=== PATIENT | male | born 1965 | race Caucasian/White ===

== ENCOUNTER 2025-05-09 13:57 | Observation (INO) | payer OTHER, SELFPAY ==
[2025-05-09] VITALS (9 sets, daily range): BP systolic 131–172; BP diastolic 78–95; BMI 26.3; BMI 26.4
--- NOTE | 2025-05-09 12:15 | ED.GENMED ---
History of Present Illness
<Carmen Ponce PA-C - Last Filed: 05/09/25 16:25>
General
Chief Complaint: Chest Pain
Source: patient
Exam Limitations: none
Time Seen by Provider: 05/09/25 12:01
History of Present Illness
History of Present Illness:
60yoM with a history of hypertension, hyperlipidemia, type 2 diabetes presenting via EMS for evaluation of palpitations. Patient reports feeling 'off' this morning and not feeling right. He drank 2 K-cups of coffee and he does not typically drink
caffeine. About 45 minutes ago, patient started to feel like his heart was pounding with associated lightheadedness and shakiness prompting EMS call. He denies any associated chest pain or shortness of breath. No syncope. He was given aspirin
prior to arrival. He denies any illicit drug use. He follows with [facility] and last had a stress test about a year ago which was reportedly normal.
Phy Exam
<Carmen Ponce PA-C - Last Filed: 05/09/25 16:25>
Physical Exam
Physical Exam:
Shaky, anxious
General Physical Exam
General Presentation: well appearing and no apparent distress
General Skin: warm and dry
General Habitus: normal
General Mental: anxious
ENT Exam
ENT Exam: normocephalic
Cardiovascular Exam
Cardiovascular Exam: regular rate/rhythm, no edema, no murmur and normal peripheral pulses
Pulmonary Exam
Pulmonary Exam: lungs clear, no respiratory distress, no rales, no crackles, no rhonchi and no wheezing
Neurological Exam
Neurological Exam: alert
Lanie Coma Scale
Eye Opening: Spontaneous
Verbal Response: Oriented
Motor Response: Obeys Commands
GCS Total Score: 15
Skin Exam
Skin Exam: normal color and warm/dry
Psychiatric Exam
Psychiatric Exam: anxious
Scores
<Carmen Ponce PA-C - Last Filed: 05/09/25 16:25>
Heart Score for Chest Pain Patients
STEMI patient?: No
History: Moderately Suspicious
ECG: Nonspecific Repolarization
Age: >45 - <65 years
Risk Factors: >/= 3 Risk Factors or History of CAD
Troponin: </= Normal Limit
Heart Score for Chest Pain Patients: 5
Heart Score Risk: 20.3% MACE over next 6 weeks
Course
<Carmen Ponce PA-C - Last Filed: 05/09/25 16:25>
Orders/Labs/Results
Orders:
Orders
05/09/25 12:04
Electrocardiogram (*1) Urgent
Reason for Study: Palpitations
EKG- Treatment ONCE
05/09/25 12:10
Complete Blood Count/With Diff Urgent
Comprehensive Metabolic Panel Urgent
Magnesium Urgent
Troponin I Urgent
05/09/25 12:12
Cardiac Monitoring- Treatment ONCE
CR Chest - 2 Views Urgent
Comment:
Reason For Exam: Palpitations
05/09/25 12:16
D-Dimer Urgent
TSH Reflex To Free T4 Urgent
05/09/25 12:30
0.9% Sodium Chloride 1000 ml [Nss] 1,000 ml IV BOLUS
05/09/25 12:41
Potassium Chloride [KCl] 40 meq PO NOW STA
05/09/25 13:23
Admit/Transfer Patient As Directed
Co-Sign Provider:
Level of Care: Observation services
Assign to:: Telemetry
Physician / Group: divine
Diagnosis: palpitations
Reason for Telemetry: Arrhythmia
Date to Stop Telemetry: 05/12/25
Time to Stop Telemetry: 11:00
PRN Pain Medication Management As Directed
May give lesser potent ordered pain med per pt: Yes
preference::
Protocol:: Medication orders for pain may be administered in a
manner that supports deferring to patient preference
when the pt is:
- Requesting an ordered lesser potent pain medication.
Least to most potent pain medications are defined
as: acetaminophen < NSAID < tramadol < opioids
(morphine, oxycodone, hydromorphone).
- Requesting a lesser dose of the same medication IF
ORDERED.
- Requesting a less intrusive route of administration
if both routes are prescribed by the provider (PO <
IV).
05/09/25 13:24
Code Status As Directed
Resuscitation Status: Full Code
05/09/25 13:28
Metoprolol [Lopressor] 5 mg IV NOW STA
05/09/25 Dinner
Regular
At Your Request: Full Participation
Does patient need a safe tray?: No
05/09/25 15:32
Troponin I Q6H
Dextrose 50%-Water [Dextrose 50% Syringe] 12.5 grams IV [id number] PRN
Glucagon [GlucaGen] 1 mg IM PRN PRN
05/09/25 15:32
CARDIOLOGY CONSULT Routine
Consulting Provider: Tari Johnson
Was physician already notified: Yes
Activity As Directed
Activity Level: As Tolerated
Bedside Glucose Monitoring As Directed
Frequency: AC&HS
Additional Instructions:: Change to q6h if pt on TPN, tube feeding or not eating
Vital Signs As Directed
Frequency: Per unit guidelines
DX Deep Vein Thrombosis Video Routine
05/09/25 16:30
Insulin Aspart Corrective Low [Novolog Flexpen-Low Resistance] See Protocol SC AC
05/09/25 20:00
Heparin 5,000 units SC Q12
05/09/25 21:32
Troponin I Q6H
05/10/25 03:32
Troponin I Q6H
05/10/25 06:00
Complete Blood Count/With Diff IN AM
Comprehensive Metabolic Panel IN AM
Glycohemoglobin (HgbA1c) IN AM
05/10/25 08:00
Atorvastatin [Lipitor] 40 mg PO DAILY
Chlorthalidone [Hygroton] 25 mg PO DAILY
Famotidine [Pepcid] 20 mg PO DAILY
Losartan [Cozaar] 100 mg PO DAILY
Tamsulosin [Flomax] 0.4 mg PO DAILY
empagliflozin [Jardiance] 25 mg PO DAILY
05/12/25 11:00
DC Protocol for Telemetry ONCE
Abnormal Lab Results
05/09/25
12:10
Absolute Monos (auto) 0.9 H 10^3/uL
(0.1-0.6)
Monocytes % 11.8 H %
(1.7-9.3)
Potassium 3.0 L mmol/L
(3.5-5.1)
BUN 22 H mg/dl
(9-20)
Glucose 127 H mg/dl
(70-99)
05/09/25 12:10
05/09/25 12:10
Vital Signs
Initial and Last Documented VS:
Initial Vital Signs
Pulse Resp Pulse Ox
109 13 98
05/09/25 12:02 05/09/25 12:02 05/09/25 12:02
Last Documented Vital Signs
Temp Pulse Resp BP Pulse Ox
98.5 F 104 16 161/93 98
05/09/25 15:55 05/09/25 15:55 05/09/25 15:55 05/09/25 15:55 05/09/25 15:55
<Boy Grady MD - Last Filed: 05/09/25 12:36>
Orders/Labs/Results
Orders:
Orders
05/09/25 12:04
Electrocardiogram (*1) Urgent
Reason for Study: Palpitations
EKG- Treatment ONCE
05/09/25 12:10
Complete Blood Count/With Diff Urgent
Comprehensive Metabolic Panel Urgent
Magnesium Urgent
Troponin I Urgent
05/09/25 12:12
Cardiac Monitoring- Treatment ONCE
CR Chest - 2 Views Urgent
Comment:
Reason For Exam: Palpitations
05/09/25 12:16
D-Dimer Urgent
TSH Reflex To Free T4 Urgent
05/09/25 12:30
0.9% Sodium Chloride 1000 ml [Nss] 1,000 ml IV BOLUS
05/09/25 12:41
Potassium Chloride [KCl] 40 meq PO NOW STA
05/09/25 13:23
Admit/Transfer Patient As Directed
Co-Sign Provider:
Level of Care: Observation services
Assign to:: Telemetry
Physician / Group: divine
Diagnosis: palpitations
Reason for Telemetry: Arrhythmia
Date to Stop Telemetry: 05/12/25
Time to Stop Telemetry: 11:00
PRN Pain Medication Management As Directed
May give lesser potent ordered pain med per pt: Yes
preference::
Protocol:: Medication orders for pain may be administered in a
manner that supports deferring to patient preference
when the pt is:
- Requesting an ordered lesser potent pain medication.
Least to most potent pain medications are defined
as: acetaminophen < NSAID < tramadol < opioids
(morphine, oxycodone, hydromorphone).
- Requesting a lesser dose of the same medication IF
ORDERED.
- Requesting a less intrusive route of administration
if both routes are prescribed by the provider (PO <
IV).
05/09/25 13:24
Code Status As Directed
Resuscitation Status: Full Code
05/09/25 13:28
Metoprolol [Lopressor] 5 mg IV NOW STA
05/09/25 Dinner
Regular
At Your Request: Full Participation
Does patient need a safe tray?: No
05/09/25 15:32
Troponin I Q6H
Dextrose 50%-Water [Dextrose 50% Syringe] 12.5 grams IV [id number] PRN
Glucagon [GlucaGen] 1 mg IM PRN PRN
05/09/25 15:32
CARDIOLOGY CONSULT Routine
Consulting Provider: Tari Johnson
Was physician already notified: Yes
Activity As Directed
Activity Level: As Tolerated
Bedside Glucose Monitoring As Directed
Frequency: AC&HS
Additional Instructions:: Change to q6h if pt on TPN, tube feeding or not eating
Vital Signs As Directed
Frequency: Per unit guidelines
DX Deep Vein Thrombosis Video Routine
05/09/25 16:30
Insulin Aspart Corrective Low [Novolog Flexpen-Low Resistance] See Protocol SC AC
05/09/25 20:00
Heparin 5,000 units SC Q12
05/09/25 21:32
Troponin I Q6H
05/10/25 03:32
Troponin I Q6H
05/10/25 06:00
Complete Blood Count/With Diff IN AM
Comprehensive Metabolic Panel IN AM
Glycohemoglobin (HgbA1c) IN AM
05/10/25 08:00
Atorvastatin [Lipitor] 40 mg PO DAILY
Chlorthalidone [Hygroton] 25 mg PO DAILY
Famotidine [Pepcid] 20 mg PO DAILY
Losartan [Cozaar] 100 mg PO DAILY
Tamsulosin [Flomax] 0.4 mg PO DAILY
empagliflozin [Jardiance] 25 mg PO DAILY
05/12/25 11:00
DC Protocol for Telemetry ONCE
Abnormal Lab Results
05/09/25
12:10
Absolute Monos (auto) 0.9 H 10^3/uL
(0.1-0.6)
Monocytes % 11.8 H %
(1.7-9.3)
Potassium 3.0 L mmol/L
(3.5-5.1)
BUN 22 H mg/dl
(9-20)
Glucose 127 H mg/dl
(70-99)
05/09/25 12:10
05/09/25 12:10
Vital Signs
Initial and Last Documented VS:
Initial Vital Signs
Pulse Resp Pulse Ox
109 13 98
05/09/25 12:02 05/09/25 12:02 05/09/25 12:02
Last Documented Vital Signs
Temp Pulse Resp BP Pulse Ox
98.5 F 104 16 161/93 98
05/09/25 15:55 05/09/25 15:55 05/09/25 15:55 05/09/25 15:55 05/09/25 15:55
<Carmen Ponce PA-C - Last Filed: 05/09/25 16:25>
MDM/Problems Addressed
Differential Diagnosis Includes:
60yoM here with palpitations and dizziness. Had caffeine this morning which is unusual for him. HR 109 on arrival and BP 172/95. He is anxious during initial exam. Differential diagnosis includes but is not limited to: Arrhythmia, thyroid
dysfunction, electrolyte abnormality, side effect of caffeine, ACS
Initial ED plan: EKG obtained at bedside which shows sinus tachycardia with ST/T wave changes in inferolateral leads. Will check cardiac labs, TSH, magnesium, D-dimer, and chest x-ray. IV fluid bolus.
<Carmen Ponce PA-C - Last Filed: 05/09/25 16:25>
*Pulse Oximetry
SaO2: 99
Oxygen Mode of Delivery: Room air
Patient hypoxic: no
*EKG
Interpreted by ED Provider?: Yes
EKG Intrepretation Date: 05/09/25
Heart Rate: 108
Rate: tachycardiac
Rhythm: sinus and PAC's
[place]: normal axis
Interval: normal interval
QRS Pattern: normal QRS
Ischemia: ST depression (ST/T wave changes in inferolateral leads)
*Critical Care Note
Total Time (30-74mins, 75-104mins- exclusive of procedures): Not Applicable
<Carmen Ponce PA-C - Last Filed: 05/09/25 16:25>
Update Note
Update Note:
Labs reveal a potassium of 3.0 which was replaced. Troponin and D-dimer normal. I was able to access patient's last EKG in 2022 on [facility] which appeared normal. Given new EKG changes and multiple risk factors, will admit for further
evaluation and monitoring.
ED Attending Note
<Carmen Ponce PA-C - Last Filed: 05/09/25 16:25>
-
Portions of this chart may have been created with voice recognition software.� Occasional wrong word or��sound alike� substitutions may have occurred due to the inherent limitations of voice recognition software.
<Boy Grady MD - Last Filed: 05/09/25 12:36>
ED Attending Note
Patient seen and examined by attending physician: Yes
I performed the substantive portion of visit, reviewed & personally made and approve the management plan that is documented in note by myself or LIZZIE.: Yes
ED Attending Note:
60-year-old male relatively sudden onset of palpitations and pounding in his heart this morning. He felt it might be related to his drinking coffee. No similar previous episodes although his states he gets up almost every day feeling off and
not himself. Blood sugar was also mildly elevated. Denies chest pain or shortness of breath. Did have a near syncopal episode. Currently feeling improved. And again currently denying chest pain or shortness of breath just feels slightly off
On exam patient is nontoxic in no distress. He is warm and dry. He is perfusing well. He is mildly tachycardic. Heart tacky but regular no murmur. Lungs clear and equal. Abdomen benign. Extremities warm and dry. Perfusing well. No thyroid
palpable. Nonfocal.
EKG mildly tachycardic with some ST depressions.
Impression is palpitations heart racing with some atypical coronary artery disease symptoms however patient is diabetic and has multiple risk factors. Ischemic changes are somewhat concerning and we are trying to locate previous EKG. Cardiac
workup. Troponin pending. Would also consider PE. He is a remote history of PE. Would also consider thyroid as a secondary cause or electrolyte issue contributory to his issues. Workup in progress
Discharge Plan
Departure
Patient Disposition: Admit
Date of Disposition: 05/09/25
Time of Disposition: 12:54
Presentation/result/management discussed w/ accepting MD/DO: Hospitalist
Discharge Problem:
Palpitations, Hypokalemia, Nonspecific abnormal electrocardiogram (ECG)
Interventions
Interventions:
*Risk Screen - Suicide Last Done: 05/09/25 12:12
*General Assessment Last Done: 05/09/25 12:16
*Neglect/Abuse Screening Last Done: 05/09/25 12:12
*ED- Fall Risk Assessment Last Done: 05/09/25 12:09
*ED COVID-19 Vaccine History Last Done: 05/09/25 12:15
*ED Influenza Vaccine History Last Done: 05/09/25 12:15
*Nursing Disposition Last Done: 05/09/25 15:47
ED- Cardiac Assessment Last Done: 05/09/25 12:15
Discharge Date and Time
Discharge Date/Time: 05/09/25 15:47
[2025-05-09 12:19] LABS: Hematocrit 43.9 % (39.0-52.0); Hemoglobin 14.7 g/dL (13.0-18.0); Mean Corp Hgb Conc. 33.5 g/dL (33.0-37.0); Mean Corpuscular Volume 83.0 fL (80.0-94.0); Nucleated Red Blood Cells % 0 % (-); Platelet Count 256 10^3/uL (130-400); Red Cell Dist. Width 13.1 % (11.5-14.5)
[2025-05-09] MEDS: NSS 1000 IV (12:33)
[2025-05-09 12:38] LABS: ALT (SGPT) 36 U/L (0-50); AST (SGOT) 33 U/L (17-59); Albumin 4.7 g/dl (3.5-5.0); Alkaline Phosphatase 98 U/L (38-126); Blood Urea Nitrogen 22 mg/dl (9-20); Calcium 9.7 mg/dl (8.4-10.2); Carbon Dioxide 27 mmol/L (22-30); Chloride 99 mmol/L (98-107); Estimated Creatinine Clearance 101 ml/min; Glucose 127 mg/dl (70-99); Magnesium 1.6 mg/dl (1.6-2.3); Potassium 3.0 mmol/L (3.5-5.1); Sodium 136 mmol/L (135-145); Total Protein 7.5 g/dl (6.3-8.2); eGFR > 60.00
[2025-05-09 12:40] LABS: D-Dimer 0.35 ug/mlFEU (0.00-0.50)
[2025-05-09 12:42] LABS: Troponin I < 0.012 ng/ml
[2025-05-09] MEDS: KCL 40 MEQ PO (13:00)
--- NOTE | 2025-05-09 13:30 | HPS.HSE ---
Addendum entered and electronically signed by Edgard Shea MD 05/09/25 15:17:
Lopressor not given because HR 106.
Original Note:
Family Physician
-
Family Physician: Joshua Mcclure
Chief Complaint
-
palpitations
History of Present Illness
60-year-old male past medical history of diabetes, hypertension, hyperlipidemia, left lower extremity DVT presenting for palpitations. He states that he fell off this morning not feeling right. 45 minutes ago he started feeling like his heart was
pounding associated lightheadedness and shaking prompting him to call EMS. He denies any chest pain or shortness of breath but does have chest tightness resembling acid reflux that he frequently gets multiple times a week at times. Denies passing
out. He did drink coffee this morning though he does not typically drink caffeine.
Denies any prior history of heart conditions.
He follows with [facility] and had a stress test in 2020 which was normal.
No family history of heart conditions.
Denies smoking or alcohol use.
Medical History
Past Medical History
Past Medical History: Reports Other (diabetes, hypertension, hyperlipidemia, left lower extremity DVT)
Past Surgical History: Reports Other (cyst removal )
Social History
Tobacco: Non-smoker
Alcohol: None
Drug: None
Family History
Family History: Not pertinent
Allergies / Home Medications
Allergies reflects when Allergies were last updated in [employer].
Home Medications with original date entered in [employer]
Allergy/Medication List:
Allergies
Allergy/AdvReac Type Severity Reaction Status Date / Time
No Known Allergies Allergy Verified 05/09/25 12:06
Home Medications
atorvastatin 40 mg tablet 40 mg PO DAILY 05/09/25
chlorthalidone 25 mg tablet 25 mg PO DAILY 05/09/25
empagliflozin 25 mg tablet (Jardiance) 25 mg PO DAILY 05/09/25
famotidine 20 mg tablet 20 mg PO DAILY 05/09/25
losartan 100 mg tablet 100 mg PO DAILY 05/09/25
metformin 500 mg tablet 500 mg PO DAILY 05/09/25
repaglinide 2 mg tablet 2 mg PO TID 05/09/25
sitagliptin phosphate 100 mg tablet (Januvia) 100 mg PO DAILY 05/09/25
tadalafil 5 mg tablet 5 mg PO DAILY PRN ED 05/09/25
tamsulosin 0.4 mg capsule 0.4 mg PO DAILY 05/09/25
Review of Systems
-
History Source: Patient
A 12 point ROS was completed and negative except as noted: Yes
Constitutional: Reports No Symptoms
EENT: Reports No Symptoms
Respiratory: Reports See HPI
Cardiac: Reports See HPI
Abdomen/GI: Reports No Symptoms
: Reports No Symptoms
Musculoskeletal: Reports No Symptoms
Skin: Reports No Symptoms
Neurological: Reports No Symptoms
Endocrine: Reports No Symptoms
Hematologic/Lymphatic: Reports No Symptoms
Psych: Reports No Symptoms
Physical Exam
Vital Signs
Vital Signs
Temp Pulse Resp BP Pulse Ox
97.7 F 111 21 170/94 99
05/09/25 12:05 05/09/25 13:15 05/09/25 13:15 05/09/25 12:11 05/09/25 12:30
Physical Exam
General: Well Developed, Well Nourished and No Apparent Distress
HEENT: NormoCephalic, Moist mucous membranes and Atraumatic
Respiratory: Clear
Cardiac: S1/S2 and Regular Rhythm; No Murmur or Rub
GI: Soft, Non Tender, Non Distended and Normal Bowel Sounds; No Organomegaly
Rectal: Deferred by Provider
Musculoskeletal: No Clubbing, No Cyanosis and No Edema
Skin: No Rash
Neuro: Nonfocal/grossly intact
Laboratory Results
-
05/09/25 12:10
05/09/25 12:10
Laboratory Results
Total Bilirubin 0.5 mg/dl (0.2-1.3) 05/09/25 12:10
AST 33 U/L (17-59) 05/09/25 12:10
ALT 36 U/L (0-50) 05/09/25 12:10
Alkaline Phosphatase 98 U/L (38-126) 05/09/25 12:10
Troponin I < 0.012 ng/ml 05/09/25 12:10
Data Reviewed
-
Lab Data: Labs Reviewed by me
Old Records: Reviewed
Impression/Plan
-
IMPRESSION:
PLAN:
# Palpitations/dizziness
- EKG shows sinus tachycardia heart rate of 108 with PACs, ST depressions in leads V3 to V6
-No clear evidence of PVCs on telemetry monitoring although possible
-Heart rate 110s
-Chest x-ray appears to show no acute abnormality, report pending
-D-dimer 0.35
- Troponin negative
- Trend troponins
- TSH pending
-Observation
-Give 5 mg Lopressor now
- Cardiology consulted
# Hypokalemia secondary to chlorthalidone
- Replete potassium, check magnesium
Type 2 diabetes
- Continue Jardiance
- Hold metformin, repaglinide, sitagliptin
- Insulin sliding scale
Essential hypertension
- Continue chlorthalidone, losartan
Prior left lower extremity DVT
Hyperlipidemia
- continue statin
GERD
- Continue Pepcid
BPH
- Continue tadalafil, tamsulosin
Full code
DVT prophylaxis�heparin
Cardiac diet
--- NOTE | 2025-05-09 14:25 | EDCM ---
CM reviewed chart and met with pt bedside in ED. Lives with his in a one story home, [address].
Independent in ADLs, personal care and ambulation at baseline. No assistive devices, no DME.
OBS form reviewed and signed, copy left with pt.
Confirms prescription coverage.
No hx VN or SNF
PCP: Joshua Galdamez
Pharmacy: [facility]
Anticipate discharge home, CM will continue to follow for any discharge planning needs.
[2025-05-09] MEDS: NOVOLOG FLEXPEN-LOW RESISTANCE 300 UNITS SC (19:32)
[2025-05-09 20:20] LABS: Troponin I < 0.012 ng/ml
[2025-05-09] MEDS: HEPARIN 5000 UNITS SC (20:42)
[2025-05-09 23:17] LABS: Glucose - Point of Care 146 mg/dl (70-99)
[2025-05-09 23:17] LABS: Glucose - Point of Care 202 mg/dl (70-99)
[2025-05-10 03:11] VITALS: BP 119/75
[2025-05-10 04:21] LABS: Hematocrit 41.2 % (39.0-52.0); Hemoglobin 13.8 g/dL (13.0-18.0); Mean Corp Hgb Conc. 33.5 g/dL (33.0-37.0); Mean Corpuscular Volume 83.1 fL (80.0-94.0); Nucleated Red Blood Cells % 0 % (-); Platelet Count 251 10^3/uL (130-400); Red Cell Dist. Width 13.2 % (11.5-14.5)
[2025-05-10 04:46] LABS: ALT (SGPT) 34 U/L (0-50); AST (SGOT) 29 U/L (17-59); Albumin 4.0 g/dl (3.5-5.0); Alkaline Phosphatase 61 U/L (38-126); Blood Urea Nitrogen 19 mg/dl (9-20); Calcium 9.2 mg/dl (8.4-10.2); Carbon Dioxide 29 mmol/L (22-30); Chloride 103 mmol/L (98-107); Estimated Creatinine Clearance 116 ml/min; Glucose 117 mg/dl (70-99); Potassium 4.1 mmol/L (3.5-5.1); Sodium 138 mmol/L (135-145); Total Protein 6.7 g/dl (6.3-8.2); eGFR > 60.00
[2025-05-10 04:54] LABS: Troponin I < 0.012 ng/ml
[2025-05-10 07:40] VITALS: BP 128/85
[2025-05-10 07:51] LABS: Glucose - Point of Care 128 mg/dl (70-99)
[2025-05-10] MEDS: NOVOLOG FLEXPEN-LOW RESISTANCE SC (08:23)
[2025-05-10] MEDS: COZAAR 100 MG PO (08:24)
[2025-05-10] MEDS: FLOMAX 0.4 MG PO (08:25)
[2025-05-10] MEDS: HEPARIN 5000 UNITS SC (08:25)
[2025-05-10] MEDS: FARXIGA 10 MG PO (08:25)
[2025-05-10] MEDS: LIPITOR 40 MG PO (08:25)
[2025-05-10] MEDS: PEPCID 20 MG PO (08:25)
--- NOTE | 2025-05-10 08:27 | CON.CAR ---
Consultation
Consultation Request
Date/Time Consultation Requested: 05/10/2025
Date/Time Consultation Performed: 05/10/2025
Reason for Consultation: Tachycardia and plpitations
Medical History
-
Chief Complaint: Palpitations
History of Present Illness:
60-year-old male past medical history of diabetes, hypertension, hyperlipidemia, left lower extremity DVT presenting for palpitations. He states that he fell off this morning not feeling right. 45 minutes ago he started feeling like his heart was
pounding associated lightheadedness and shaking prompting him to call EMS. He denies any chest pain or shortness of breath but does have chest tightness resembling acid reflux that he frequently gets multiple times a week at times. Denies passing
out. He did drink coffee this morning though he does not typically drink caffeine.
Past Medical History
Past Medical History: HTN, Hypercholesterolemia, NIDDM and Other (Left lower extremity DVT)
Social History
Tobacco: Non-Smoker
Alcohol: None
Drug: None
Personal:
Family History
Family History: Reviewed & Not Pertinent
Allergies / Home Medications
Allergy/AdvReac Type Severity Reaction Status Date / Time
No Known Allergies Allergy Verified 05/09/25 12:06
�Medication �Instructions �Recorded �Confirmed �Type
atorvastatin 40 mg tablet 40 mg PO DAILY 05/09/25 05/09/25 History
chlorthalidone 25 mg tablet 25 mg PO DAILY 05/09/25 05/09/25 History
empagliflozin 25 mg tablet 25 mg PO DAILY 05/09/25 05/09/25 History
(Jardiance)
famotidine 20 mg tablet 20 mg PO DAILY 05/09/25 05/09/25 History
losartan 100 mg tablet 100 mg PO DAILY 05/09/25 05/09/25 History
metformin 500 mg tablet 500 mg PO DAILY 05/09/25 05/09/25 History
repaglinide 2 mg tablet 2 mg PO TID 05/09/25 05/09/25 History
sitagliptin phosphate 100 mg 100 mg PO DAILY 05/09/25 05/09/25 History
tablet (Januvia)
tadalafil 5 mg tablet 5 mg PO DAILY PRN ED 05/09/25 05/09/25 History
tamsulosin 0.4 mg capsule 0.4 mg PO DAILY 05/09/25 05/09/25 History
Review of Systems
-
All other systems: Negative unless noted
Physical Exam
Vital Signs
Temp Pulse Resp BP Pulse Ox
97.9 F 78 16 128/85 97
05/10/25 07:40 05/10/25 07:40 05/10/25 07:40 05/10/25 07:40 05/10/25 07:40
Lab Results
05/10/25 04:10
05/10/25 04:10
Troponin I Cancelled 05/10/25 07:42
Physical Exam
General: Well Developed, Well Nourished and No Apparent Distress
HEENT: Normocephalic, Anicteric and Moist Mucous Membranes
Respiratory: Clear, Wheezes, Crackles and Rhonchi
Cardiac: S1/S2 and Regular Rhythm
GI: Soft, Non Tender and Normal Bowel Sounds
Musculoskeletal: No Clubbing, No Cyanosis and No Edema
Skin: Warm and Dry
Neuro: Awake, Alert, Oriented, AO x 3 and No Motor Deficits
Impression / Plan
-
Palpitations
- Highly suspicious of SVT with ingestion of caffeine
- EKG done at the arrival to the ER shows sinus tachycardia with
- Likely terminated SVT into sinus tachycardia at the time of arrival
- Infrequent episodes.
- Currently no need to start scheduled beta-blockers.
- Use metoprolol/nadolol as needed for palpitations
- Workup as an outpatient including ETT and echo
- Patient has a forklift technician�DrShante Villalobos
- Follow-up with primary forklift technician within 1 to 2 weeks
- Avoid caffeine at this time
Hypertension
- On losartan and chlorthalidone
Diabetes
- On Jardiance, Januvia and metformin
Data Reviewed
-
EKG: Tracing Personally Visualized and interpreted
Radiology: Report Reviewed by me
Labs: Labs Reviewed by me
Old Records: Reviewed
--- NOTE | 2025-05-10 09:21 | W.PN.HOSP.TC ---
Today's Communication/Plan
-
dc if ok with cardiology
Assessment / Plan
Assessment / Plan
Physical Exam
General: Well Developed, Well Nourished and No Apparent Distress
HEENT: NormoCephalic, Moist mucous membranes and Atraumatic
Respiratory: Clear
Cardiac: S1/S2 and Regular Rhythm; No Murmur or Rub
GI: Soft, Non Tender, Non Distended and Normal Bowel Sounds;
Musculoskeletal: No Clubbing, No Cyanosis and No Edema
Skin: No Rash
Neuro: Nonfocal/grossly intact
Psych; calm
# Palpitations/dizziness
- EKG shows sinus tachycardia heart rate of 108 with PACs, ST depressions in leads V3 to V6
His HR back to 70s
He did not have palpitations or shortness of breath or chest pain
Serial troponins negative.
Normal TSH
-Chest x-ray appears to show no acute abnormality, report pending
-D-dimer 0.35
Patient feels it was secondary to caffeinated coffee. He drinks decaf usually
- Cardiology consulted
# Hypokalemia resolved
#Type 2 diabetes
No changes intended
Essential hypertension
No changes intended
Prior left lower extremity DVT
Hyperlipidemia
- continue statin
GERD
- Continue Pepcid
BPH
- Continue tadalafil, tamsulosin
Full code
DVT prophylaxis�heparin
Cardiac diet
Total discharge time spent to see the patient, examine the patient, review data and lab result, discuss discharge plan with patient, nursing staff around 65 minutes
Anticipated Discharge: Today
Subjective/Interval History
-
Date of Service: May 10, 2025
He feels well, requesting discharge, thinks it was from caffeinated coffee
No chest pain or palpitations
Objective Data
-
Labs:
Laboratory Results
05/10/25
04:10
WBC 8.4
Hgb 13.8
Hct 41.2
Plt Count 251
Sodium 138
Potassium 4.1 D
Chloride 103
Carbon Dioxide 29
BUN 19
Creatinine 0.7
Glucose 117 H
Calcium 9.2
Total Bilirubin 0.6
AST 29
ALT 34
Alkaline Phosphatase 61
Vital Signs:
Vital Signs
Temp Pulse Resp BP Pulse Ox
97.9 F 78 16 128/85 97
05/10/25 07:40 05/10/25 08:24 05/10/25 07:40 05/10/25 08:24 05/10/25 07:40
I&O
05/09/25 05/10/25 05/11/25
06:59 06:59 06:59
Intake Total 480 / 480
Balance 480 / 480
[2025-05-10 11:06] VITALS: BP 128/79
[2025-05-10 12:35] LABS: Glycohemoglobin (HgbA1c) 6.6 % (4.0-5.6)
--- NOTE | 2025-05-10 13:31 | W.DCSUMMARY ---
Discharge Summary
Discharge Data
Date of Admission: 05/09/25
Date of Discharge: 05/10/25
-
Pending Results: No
Hospital Course
60 years old male presented with palpitations. Patient felt lightheadedness and shaking prior morning him to call EMS. He denied chest pain or shortness of breath. Patient reported symptoms might have started after drinking caffeinated coffee.
He had negative serial troponin. Chest radiography did not show acute findings. Normal TSH. Patient was evaluated by rn circulating. Presentation was highly suspicious of SVT with ingestion of caffeine but EKG showed sinus tachycardia only.
Investment Banking Associate recommended outpatient follow-up with primary rn circulating to consider exercise tolerance test/echocardiogram. Patient verbalized understanding and requested discharge. Patient was noted to have hypokalemia and was given potassium
with good improvement. Patient remained hemodynamically stable and was discharged home in a stable condition.
Discharge Plan
-
Patient Disposition: Home (Routine Discharge)
Discharge Diagnosis/Procedures: Palpitations, resolved.
You will need to follow with your rn circulating for exercise tolerance test/cardiac stress test and echocardiogram
Diet: As tolerated
Referrals:
Joshua Mcclure MD [Family Provider, Family Practice] - in one to two weeks
Bharathi Villalobos MD [Non-Admitting Privileges, Cardiology] - in one to two weeks
Prescriptions:
Continued
atorvastatin 40 mg Tablet
40 mg PO DAILY
metformin 500 mg Tablet
500 mg PO DAILY
repaglinide 2 mg Tablet
2 mg PO TID
chlorthalidone 25 mg Tablet
25 mg PO DAILY
famotidine 20 mg Tablet
20 mg PO DAILY
tamsulosin 0.4 mg Capsule
0.4 mg PO DAILY
losartan 100 mg Tablet
100 mg PO DAILY
tadalafil 5 mg Tablet
5 mg PO DAILY PRN (Reason: ED)
Januvia 100 mg Tablet
100 mg PO DAILY
Jardiance 25 mg Tablet
25 mg PO DAILY
Discharge Orders:
Discharge Patient (As Directed); Ordered 05/10/25
Ordered By: Rosalina Hardin
Discharge Date and Time
Discharge Date/Time: 05/10/25 12:30
Print Language: GREEK
== END 2025-05-10 12:30 | disposition home or self-care (01) ==
LOC: 2 NORTH 13:57
PROVIDERS: Nurse Practitioner Family; Physician Assistant; ADMITTING PHYSICIAN Hospitalist; ATTENDING PHYSICIAN Internal Medicine; CONSULT PHYSICIAN Internal Medicine Cardiovascular Disease; EMERGENCY PHYSICIAN Emergency Medicine; FAMILY PHYSICIAN Family Medicine
DX: R00.2 Palpitations (principal); R07.9 Chest pain, unspecified; I10 Essential (primary) hypertension; E11.9 Type 2 diabetes mellitus without complications; E78.00 Pure hypercholesterolemia, unspecified; R42 Dizziness and giddiness; I49.1 Atrial premature depolarization; N40.0 Benign prostatic hyperplasia without lower urinary tract symptoms; R00.0 Tachycardia, unspecified; I25.10 Atherosclerotic heart disease of native coronary artery without angina pectoris; E87.6 Hypokalemia; Z86.718 Personal history of other venous thrombosis and embolism; K21.9 Gastro-esophageal reflux disease without esophagitis; Z79.899 Other long term (current) drug therapy; Z79.84 Long term (current) use of oral hypoglycemic drugs
CPT/HCPCS: 71046; 80053; 82962; 83036; 83735; 84443; 84484; 85025; 85379; 87070; 87147; 93005; 96360; 99285; G0378

== ENCOUNTER 2025-06-29 07:50 | Emergency (ER) | payer OTHER, SELFPAY ==
[2025-06-29] VITALS (10 sets, daily range): BP systolic 146–168; BP diastolic 82–107; BMI 26.8
--- NOTE | 2025-06-29 08:23 | ED.GENMED ---
History of Present Illness
General
Chief Complaint: Chest Pain
Time Seen by Provider: 06/29/25 08:02
History of Present Illness
History of Present Illness:
see MDM
Phy Exam
Physical Exam
Physical Exam:
GENERAL: Alert , in no apparent distress
EYE: pupils equal and reactive
NECK: Supple
ENT: o/p clr, mmm.
CARDIAC: Mild tachycardia
LUNGS: Clear breath sounds bilaterally, no acute respiratory distress, no wheezes/rales/rhonchi
ABDOMEN: Soft, without focal tenderness, no r/g, no cvat, normal bowel sounds
NEUROLOGICAL: Alert and oriented, no focal neuro deficits
SKIN: Warm and dry, skin intact.
MUSCULOSKELETAL: No edema, well perfused. neg savanah's sign
PSYCH: Mildly anxious
Scores
Heart Score for Chest Pain Patients
STEMI patient?: No
History: Slightly or Non-Suspicious
ECG: Nonspecific Repolarization
Age: >45 - <65 years
Risk Factors: >/= 3 Risk Factors or History of CAD
Troponin: </= Normal Limit
Heart Score for Chest Pain Patients: 4
Heart Score Risk: 20.3% MACE over next 6 weeks
Course
Orders/Labs/Results
Orders:
Orders
06/29/25 07:53
Electrocardiogram (*1) Urgent
Reason for Study: Chest Pain
EKG- Treatment ONCE
06/29/25 08:18
0.9% Sodium Chloride 1000 ml [Nss] 1,000 ml IV BOLUS
06/29/25 08:19
CT Chest PE Study Urgent
Comment:
Reason For Exam: tachy, cp, h/o dvt
06/29/25 08:40
CMP [Comprehensive Metabolic Panel] Urgent
COVID-19 Antigen Urgent
Source: Nasal Swab
Complete Blood Count/With Diff Urgent
Troponin I Urgent
Influenza A+B Rapid Molecular Urgent
DIAMOND Source: Nasal Swab
Specimen Description:
06/29/25 10:08
EKG- Treatment ONCE
06/29/25 10:14
Losartan [Cozaar] 100 mg PO NOW STA
06/29/25 11:30
Electrocardiogram (*1) Urgent
Reason for Study: Chest Pain
06/29/25 12:00
Troponin I Urgent
Abnormal Lab Results
06/29/25
08:40
MCHC 32.7 L g/dL
(33.0-37.0)
Absolute Neuts (auto) 7.7 H 10^3/uL
(1.4-6.5)
Absolute Lymphs (auto) 1.0 L 10^3/uL
(1.2-3.4)
Absolute Monos (auto) 0.9 H 10^3/uL
(0.1-0.6)
Neutrophils % 79.0 H %
(42.2-75.2)
Lymphocytes % 9.8 L %
(20.5-51.1)
Glucose 148 H mg/dl
(70-99)
06/29/25 08:40
06/29/25 08:40
Vital Signs
Initial and Last Documented VS:
Initial Vital Signs
Temp Pulse Resp BP Pulse Ox
37.0 C 115 16 161/107 99
06/29/25 07:53 06/29/25 07:53 06/29/25 07:53 06/29/25 07:53 06/29/25 07:53
Last Documented Vital Signs
Temp Pulse Resp BP Pulse Ox
36.6 C 86 21 152/86 96
06/29/25 13:09 06/29/25 12:59 06/29/25 12:59 06/29/25 13:00 06/29/25 12:59
MDM/Problems Addressed
MDM/Problems Addressed:
Note:
CHIEF COMPLAINT(S)
Elevated blood pressure and chest discomfort.
HISTORY OF PRESENT ILLNESS
The patient is a 60-year-old male h/o NIDDM, HTN, HLD, DVT who presented to the emergency department with concerns about elevated blood pressure and chest discomfort. Symptoms commenced yesterday morning when the patient noted that his blood
pressure was significantly elevated, leading him to monitor the readings throughout the day. He experienced chest tightness, described as a sensation of pressure and a 'lump in the throat,' rated at a five out of ten in terms of discomfort. He also
reported sensations of his heart pounding and chills without fever. The patient has a past medical history of blood clots and experienced a similar episode in May, which led to a normal cardiac stress test with echocardiogram conducted in 2020.
Yesterday, he felt unwell, attributing this to high blood pressure and spent the day lying down. He did not take his usual antihypertensive medication on the day of admission but did take aspirin. This morning, the symptoms persisted, with his blood
pressure measuring in the 170s/180s over 90s. He described experiencing chills and cold sensations, as well as the fear of elevated heart rate and pulse.
The patient has not engaged in any recent travel or undergone surgery other than a cyst removal via a plastic surgeon, which was performed as an outpatient procedure. He discontinued his diuretic (chlorothiazide) and Jardiance (empagliflozin) less
than two weeks ago due to concerns about symptoms of low blood sugar and dehydration.
ADDITIONAL HISTORY OBTAINED FROM SOURCES OTHER THAN THE PATIENT
Per the patients spouse, the patient felt sufficiently concerned about chest discomfort and elevated pulse, prompting closer monitoring and subsequently seeking emergency care.
CHRONIC MEDICAL CONDITIONS SIGNIFICANTLY AFFECTING CARE
The patient is a diabetic on oral medication, recently stopped taking Jardiance. He is also diagnosed with hypertension and has a history of blood clots, previously treated with anticoagulants.
SOCIAL DETERMINANTS AFFECTING HEALTH
The patient expressed being under significant stress.
REVIEW OF SYSTEMS
- Cardiovascular: Chest pressure/tightness, palpitations, elevated blood pressure.
- Respiratory: No cough, dyspnea, or pleuritic chest pain.
- Neurological: Lightheadedness.
- Constitutional: Chills without fever, feeling unwell and exhausted.
- Gastrointestinal: No significant symptoms reported.
PHYSICAL EXAM
GENERAL: Alert , in no apparent distress
EYE: pupils equal and reactive
NECK: Supple
ENT: o/p clr, mmm.
CARDIAC: Mild tachycardia no murmur
LUNGS: Clear breath sounds bilaterally, no acute respiratory distress, no wheezes/rales/rhonchi
ABDOMEN: Soft, without focal tenderness, no r/g, no cvat, normal bowel sounds
NEUROLOGICAL: Alert and oriented, no focal neuro deficits
SKIN: Warm and dry, skin intact.
MUSCULOSKELETAL: No edema, well perfused. neg savanah's sign
PSYCH: Normal and appropriate interaction.
- Nursing notes reviewed and vital signs reviewed.
PROBLEM LIST
Acute Problems:
- Elevated blood pressure with chest discomfort
- Possible dehydration
- Concern for potential pulmonary embolism
Chronic Problems:
- Hypertension
- Diabetes
- History of blood clots
PLAN
1. Obtain a CT scan of the chest with contrast to rule out pulmonary embolism, considering the patients history of blood clots and current symptoms.
2. Conduct a complete metabolic panel to evaluate electrolytes including potassium levels.
3. Administer fluids to address potential dehydration.
4. Check cardiac markers to assess for any cardiac events.
5. Test for flu and COVID-19 to rule out infectious causes for current symptoms.
6. Follow-up with the patients primary care physician and cake froster for ongoing management post-discharge.
DIFFERENTIAL DIAGNOSIS
The Differential Diagnosis includes, in no particular order and is not limited to:
1. Hypertensive crisis
2. Anxiety-induced symptoms
3. Cardiac arrhythmia
4. Pulmonary embolism
5. Acute coronary syndrome
6. Dehydration
7. Metabolic imbalance (electrolyte disturbance)
8. Myocarditis
9. Pericarditis
10. Hyperthyroidism
60 y/o Mhtn, hld, dm
chest pain/heaviness this am
yesterday onset of elev bp, not feeling well
some anxiety
ekg is nonspecitiv st chagnes laterally
sinus tach
06/29/25 - 10:20
Patient continues to experience minimal symptoms without any worsening but expresses a general feeling of not being himself, which he believes is related to his blood pressure, currently at 150/80 mmHg. Patient appears well and comfortable. Negative
troponin and CT scan ruled out pulmonary embolism. Small known pulmonary nodule without smoking history likely requires no follow-up. Plan includes repeat EKG and troponin at 1130 to complete a two-troponin rule out. Patient will follow up with
family doctor for elevated blood pressure. Suspected stress-related symptoms could be due to personal life events and discontinuation of medication two weeks ago, possibly contributing to elevated blood pressure.
06/29/25 - 12:46
Second cardiac enzyme test returned normal, ruling out myocardial infarction. Blood pressure remains elevated at 149/86 mmHg. Recommended patient consult their primary care physician to address blood pressure management, as current lisinopril dosage
is at maximum. Consideration for alternative antihypertensive medication advised. Discharge planned.
*Pulse Oximetry
SaO2: 99
Oxygen Mode of Delivery: Room air
Patient hypoxic: no (96)
*Critical Care Note
Total Time (30-74mins, 75-104mins- exclusive of procedures): Not Applicable
ED Attending Note
-
Portions of this chart may have been created with voice recognition software.� Occasional wrong word or��sound alike� substitutions may have occurred due to the inherent limitations of voice recognition software.
Discharge Plan
Departure
Patient Disposition: Home (Routine Discharge)
Date of Disposition: 06/29/25
Time of Disposition: 12:42
Patient with high blood pressure during this ER visit?: No
Condition: Fair
Covid-19: Not Applicable
Discharge Problem:
Chest tightness, Hypertension
Instructions: Chest Pain NON-DHP Bilingual Social Worker Follow Up, BLOOD PRESSURE
Prescriptions:
No Action
atorvastatin 40 mg Tablet
40 mg PO DAILY
metformin 500 mg Tablet
500 mg PO DAILY
repaglinide 2 mg Tablet
2 mg PO TID
chlorthalidone 25 mg Tablet
25 mg PO DAILY
famotidine 20 mg Tablet
20 mg PO DAILY
tamsulosin 0.4 mg Capsule
0.4 mg PO DAILY
losartan 100 mg Tablet
100 mg PO DAILY
tadalafil 5 mg Tablet
5 mg PO DAILY PRN (Reason: ED)
Januvia 100 mg Tablet
100 mg PO DAILY
Jardiance 25 mg Tablet
25 mg PO DAILY
Referrals:
Joshua Mcclure MD [Family Provider, Family Practice] - Follow up in 2-3 days
Activity Restrictions/Additional Instructions:
Your blood pressure has been a little bit high here but not as high as at home. You could consider calling your family doctor for blood pressure check over the next couple days. Since stopping the diuretic may be having some rebound hypertension.
There are no signs of a heart attack and no blood clot. Avoid
Exertional activities for the moment until you are followed up. Return for any concerns
Interventions
Interventions:
*Risk Screen - Suicide Last Done: 06/29/25 07:57
*General Assessment Last Done: 06/29/25 08:23
*Neglect/Abuse Screening Last Done: 06/29/25 07:57
*ED- Fall Risk Assessment Last Done: 06/29/25 08:23
*ED COVID-19 Vaccine History Last Done: 06/29/25 08:23
*ED Influenza Vaccine History Last Done: 06/29/25 08:23
*Nursing Disposition Last Done: 06/29/25 13:09
ED- Cardiac Assessment Last Done: 06/29/25 08:23
Discharge Date and Time
Discharge Date/Time: 06/29/25 13:15
Print Language: MAORI
[2025-06-29] MEDS: NSS 1000 IV (08:39)
[2025-06-29 08:48] LABS: Hematocrit 44.7 % (39.0-52.0); Hemoglobin 14.6 g/dL (13.0-18.0); Mean Corp Hgb Conc. 32.7 g/dL (33.0-37.0); Mean Corpuscular Volume 85.1 fL (80.0-94.0); Nucleated Red Blood Cells % 0 % (-); Platelet Count 291 10^3/uL (130-400); Red Cell Dist. Width 13.4 % (11.5-14.5)
[2025-06-29 09:02] LABS: ALT (SGPT) 43 U/L (0-50); AST (SGOT) 32 U/L (17-59); Albumin 4.4 g/dl (3.5-5.0); Alkaline Phosphatase 71 U/L (38-126); Blood Urea Nitrogen 17 mg/dl (9-20); Calcium 9.6 mg/dl (8.4-10.2); Carbon Dioxide 30 mmol/L (22-30); Chloride 101 mmol/L (98-107); Estimated Creatinine Clearance 101 ml/min; Glucose 148 mg/dl (70-99); Potassium 4.3 mmol/L (3.5-5.1); Sodium 137 mmol/L (135-145); Total Protein 7.1 g/dl (6.3-8.2); eGFR > 60.00
[2025-06-29 09:13] LABS: Troponin I < 0.012 ng/ml
[2025-06-29 09:32] LABS: COVID-19 Antigen Negative (Negative)
[2025-06-29 12:39] LABS: Troponin I < 0.012 ng/ml
== END 2025-06-29 13:15 | disposition home or self-care (01) ==
LOC: EMR 07:50
PROVIDERS: Physician Assistant; EMERGENCY PHYSICIAN Emergency Medicine; FAMILY PHYSICIAN Family Medicine
DX: R07.89 Other chest pain (principal); E11.9 Type 2 diabetes mellitus without complications; E78.00 Pure hypercholesterolemia, unspecified; I10 Essential (primary) hypertension; I25.10 Atherosclerotic heart disease of native coronary artery without angina pectoris; Z79.01 Long term (current) use of anticoagulants; Z86.718 Personal history of other venous thrombosis and embolism
CPT/HCPCS: 99284; 96360; 71275; 80053; 84484; 85025; 87502; 87811; 93005; Q9967